=== PATIENT | male | born 2000 | race Hispanic/Latino ===

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

== ENCOUNTER 2022-04-02 15:19 | Emergency (ER) | payer MEDICAID ==
[~2022-04-02] VITALS: Ht 175.3 cm; Wt 127.0 kg
[~2022-04-02 15:19] MED LIST: IBUP-1493 PO; LORA-868 PO; OSEL75 PO
[2022-04-02 15:20] VITALS: BP 126/68
[2022-04-02] MEDS ORDERED: IBUP-2070 PO (17:22)
== END 2022-04-02 17:37 | disposition home or self-care (01) ==
LOC: EDH 15:19
DX: S00.33XA Contusion of nose, initial encounter (principal); W50.0XXA Accidental hit or strike by another person, initial encounter; Y93.89 Activity, other specified; Y92.89 Other specified places as the place of occurrence of the external cause; Y99.8 Other external cause status
CPT/HCPCS: 70160